=== PATIENT | female | born 1970 | race African-American/Black ===

== ENCOUNTER 2017-10-27 14:10 | Outpatient (CLI) | payer BC ==
--- NOTE | 2017-10-27 14:59 | MMO ---
BILATERAL SCREENING MAMMOGRAMS: Date: 10/27/17 Comparison made to prior exams from 2011 and 2016. This patient's mammogram was interpreted with the assistance of computer-aided detection. FINDINGS: Scattered fibroglandular densities are noted with parenchymal opacity in retroareolar regions bilater ally. Scattered benign calcifications. No mass or distortion. No interval change noted. Recommend 1 y ear follow-up. IMPRESSION: BIRADS 2: Benign Finding(s) POS: [facility]
== END 2017-10-27 14:11 | disposition home or self-care (01) ==
LOC: SCSMAMMO 14:10
PROVIDERS: ATTEND Family Medicine
DX: Z12.31 Encounter for screening mammogram for malignant neoplasm of breast (principal)
CPT/HCPCS: 77067